=== PATIENT | male | born 1990 | race Caucasian/White ===

== ENCOUNTER 2019-11-11 19:27 | Emergency (ER) | payer OTHER ==
[~2019-11-11] VITALS: Ht 177.8 cm; Wt 103.0 kg
[2019-11-11 19:41] VITALS: Ht 177.8 cm; Wt 103.0 kg
[2019-11-11 21:17] VITALS: BP 122/60
== END 2019-11-11 21:17 | disposition home or self-care (01) ==
LOC: ED 19:27
DX: H10.212 Acute toxic conjunctivitis, left eye (principal)
CPT/HCPCS: J7030; V2632